=== PATIENT | male | born 1980 | race Caucasian/White ===

== ENCOUNTER → 2020-10-21 | Outpatient (CLI) | payer OTHER ==
[~2020-10-21] MED LIST: HYOSCYAMINE0.375 MG PO; PRILOSEC OTC20 MG PO
== END ==
LOC: M.LAB 15:25
PROVIDERS: ATTEND Surgery
DX: Z01.812 Encounter for preprocedural laboratory examination (principal); Z20.822 Contact with and (suspected) exposure to COVID-19

== ENCOUNTER → 2020-10-25 | Day surgery (SDC) | payer OTHER ==
[~2020-10-25] MED LIST changes: +NORCO5 PO
--- NOTE | ~2020-10-25 | OP ---
[facility] [address] [place] [address] OPERATIVE REPORT Name: CARIN BLACKWELL Room: [facility].#: [id number] Admission: 10/25/20 Attend Phys: Miller Cerrato Discharge: Date of : 82 Report #: [id number] THIS REPORT FOR: cc: Ekaterina Cisneros MD, Jinming MD ~ Miller Cerrato MD DATE OF SERVICE: 10/25/2020 PREOPERATIVE DIAGNOSIS: Chronic cholecystitis. POSTOPERATIVE DIAGNOSIS: Chronic cholecystitis. OPERATION: Laparoscopic cholecystectomy. SURGEON: Miller Cerrato MD ANESTHESIA: General. ESTIMATED BLOOD LOSS: Minimal. SPECIMEN: Gallbladder. DESCRIPTION OF PROCEDURE: After informed consent was obtained, the patient was brought to the operating room and placed supine. SCDs were placed and working, preoperative antibiotics were administered, general anesthesia was induced. The abdomen was prepped and draped in usual sterile fashion. A 5 mm incision was made in the left upper quadrant. A 5 mm trocar was placed under direct vision. Pneumoperitoneum was established. Three right upper quadrant 5 mm ports were placed. Gallbladder was grasped at the fundus and retracted cephalad. Infundibulum was grasped and retracted laterally. I dissected out the cystic duct and the cystic plate. I identified the cystic artery. The cystic duct and artery were clipped and ligated leaving 2 clips on the remaining duct and one on the remaining artery. Gallbladder was then taken off the liver bed with electrocautery. It was placed into an Endopouch and removed. The fascia was then closed with a [id number] 0 Vicryl. Skin was closed with 4-0 Monocryl. Incisions were dressed with Steri-Strips. COMPLICATIONS: None. DISPOSITION: The patient was taken to recovery in satisfactory condition. By: 1223 [id number] Cerrato MD /nt
[2020-10-25 07:09] LABS: CALCIUM 8.9 mg/dL (8.5-10.1); POTASSIUM 3.7 mmol/L (3.5-5.1)
[2020-10-25 07:13] LABS: ALBUMIN 3.5 g/dL (3.4-5.0); TOTAL BILIRUBIN 0.5 mg/dL (<0.1-1.0); TOTAL PROTEIN 7.3 g/dL (6.4-8.2)
[2020-10-25 10:22] LABS: HEMATOCRIT 38.7 % (42.0-52.0); HEMOGLOBIN 12.9 gm/dL (14.0-18.0); MCH 29.6 pg (26.0-34.0); MCHC 33.2 g/dL (28.0-37.0); MCV 89.2 fL (80.0-100.0); MPV 7.3 fl. (7.2-11.1); RBC 4.34 mil/uL (4.50-6.00); RDW-CV 13.4 % (10.5-14.5); WBC 10.4 thou/uL (4.0-11.0)
--- NOTE | 2020-10-29 12:06 | PATH ---
[address] [address] PATHOLOGY RPT PROCEDURE Name: JONO BLACKWELL Room: [facility].R.#: [id number] Admission: 10/25/20 Date of : 82 Discharge: Report #: [id number] Path Case #: [id number] [facility] Accession Number: [id number] . 01 Material submitted: . gallbladder - GALLBLADDER AND CONTENTS . 01 Clinical history: . LAPAROSCOPIC CHOLECYSTECTOMY CALCULOUS OF GALLBLADDER . 02 Diagnosis: Gallbladder and contents: - Chronic cholecystitis and cholesterolosis including cholesterol polyps. (RICHIE:josé miguel; 10/28/2020) R 10/28/2020 1713 Local . 02 Electronically signed: . Kaiser Quick MD, Pathologist NPI- [id number] . 01 Gross description: . Received in formalin labeled "Jono Blackwell, gallbladder and contents" is an intact cholecystectomy specimen measuring 7.8 x 3.3 x 2.8 cm. The serosa is yellow-green. The specimen is opened to reveal green mucosa with moderate yellow stippling and scant adherent yellow-green friable material. The average wall thickness is 0.1 cm. Calculi are not identified within the gallbladder or container. Pharmaceutical Detailer sections of the fundus and body and the cystic duct margin are submitted in A1. ([facility]; 10/27/2020) [facility] 10/28/2020 1712 Local . 02 Pathologist provided ICD-10: K81.1, K82.4 . 02 CPT . 094776 Specimen Comment: Report sent to / Performed at: [address], [place] [id number] MD Zbigniew Lance MD Phone: [phone] Performed at: 02 [facility] [address], [place], [place] [id number] MD Kaiser Quick MD Phone: [phone]
== END | disposition home or self-care (01) ==
LOC: M.SUR
PROVIDERS: Anesthesiology; ATTEND Surgery
DX: K81.1 Chronic cholecystitis (principal); R10.11 Right upper quadrant pain; K21.9 Gastro-esophageal reflux disease without esophagitis; F41.9 Anxiety disorder, unspecified; Z79.899 Other long term (current) drug therapy; Z88.6 Allergy status to analgesic agent